=== PATIENT | male | born 1990 | race American Indian/Alaskan Native ===

== ENCOUNTER 2021-01-16 01:51 | Emergency (ER) | payer SELFPAY ==
[2021-01-16] MEDS ORDERED: MIDAZOLAM 5 MG/5 ML INJ MDV IV ONE (01:54)
[2021-01-16] MEDS ORDERED: fentaNYL 100 MCG/2 ML INJ IV ONE ×2 (01:54→01:55)
[2021-01-16] MEDS ORDERED: SODIUM CHLORIDE 0.9% 1000 ML 1,000 ML IV ONE (01:54)
[2021-01-16] MEDS ORDERED: ONDANSETRON 4 MG/2 ML INJ IV ONE (01:55)
--- NOTE | 2021-01-16 02:02 | Emergency Department Report ---
ED Upper Extremity Inj HPI - General Stated Complaint: DISLOCATED SHOULDER Time Seen by Provider: 01/16/21 01:53 Source: patient - History of Present Illness Initial Comments: Patient is 30 years old male with no significant past medical history. Patient presented to the ER complaining of sudden onset of left shoulder pain and deformity. Patient stated that he lifted something heavy and all of a sudden his symptoms started. Patient denied any other injuries. Patient denied any shoulder dislocation before. MD Complaint: Injury to:: left, shoulder -: Sudden Other Extremity Injury: Shoulder: Left Other Injuries: none Severity scale (0 -10): 10 Associated Symptoms: denies other symptoms - Related Data Allergies Allergy/AdvReac Type Severity Reaction Status Date / Time No Known Allergies Allergy Unverified 03/03/20 18:37 ED Review of Systems ROS: Stated complaint: DISLOCATED SHOULDER Other details as noted in HPI Comment: All other systems reviewed and negative Constitutional: denies: chills, fever Respiratory: denies: cough, shortness of breath, SOB with exertion Cardiovascular: denies: chest pain, palpitations Gastrointestinal: denies: abdominal pain, nausea Musculoskeletal: denies: back pain Neurological: denies: headache, weakness, numbness, paresthesias ED Past Medical Hx - Social History Smoking Status: Never Smoker Substance Use Type: None ED Physical Exam - General General appearance: alert, in distress - Head Head exam: Present: atraumatic, normocephalic, normal inspection - Eye Eye exam: Present: normal appearance - ENT ENT exam: Present: normal exam, normal orophraynx - Neck Neck exam: Present: normal inspection, full ROM. Absent: tenderness, meningismus - Respiratory Respiratory exam: Present: normal lung sounds bilaterally. Absent: respiratory distress, wheezes - Cardiovascular Cardiovascular Exam: Present: regular rate, normal rhythm, normal heart sounds - GI/Abdominal GI/Abdominal exam: Present: soft. Absent: distended, tenderness, guarding, rebound - Extremities Exam Extremities exam: Present: normal inspection, full ROM, normal capillary refill - Expanded Upper Extremity Exam Left Shoulder Exam: Present: tenderness, deformity, dislocation Upper Arm exam: Present: normal inspection, full ROM. Absent: tenderness, swelling, abrasion, laceration, ecchymosis Elbow exam: Present: normal inspection, full ROM. Absent: tenderness, swelling, abrasion, laceration Hand Wrist exam: Present: normal inspection, full ROM. Absent: tenderness Neuro motor exam: Present: wrist extension intact, thumb opposition intact, thumb IP flexion intact, thumb adduction intact, fingers 2-5 abduction intact Neurosensory exam: Present: 2-point discrimination, radial nerve intact, ulnar nerve intact, median nerve intact Vascular: Present: normal capillary refill - Back Exam Back exam: Present: normal inspection, full ROM. Absent: CVA tenderness (R), CVA tenderness (L) - Neurological Exam Neurological exam: Present: alert, oriented X3, CN II-XII intact - Psychiatric Psychiatric exam: Present: normal mood - Skin Skin exam: Present: warm, intact, normal color - Moderate Sedation Indications: fracture/dislocation redu ASA Class: II Mallampati Airway Score: 2 Preparation: teletypesetter monitor applied, pulse oximeter, capnometry used, supplemental O2 applied, reversal agents at bedside, suction/airway equipment at bedside Fentanyl: IV Midazolam: IV IV Etomidate Dose (mgs): 5 Complications: none Patient Tolerated Procedure: well, no complications - Orthopedic Joint Reduction Joint #1 Consent Obtained: written consent Time Out Performed: Yes Side: left Joint Reduction Location: shoulder Analgesia: moderate sedation Shoulder Technique Used (if applicable): traction/counter-traction Post-Reduction Neuro Exam: intact Post-Reduction Vascular Exam: intact Post Reduction X-Ray Obtained: Yes Post Reduction X-Ray Results: reduced Splint Applied: Yes Patient Tolerated Procedure: well, no complications Critical care attestation.: If time is entered above; I have spent that time in minutes in the direct care of this critically ill patient, excluding procedure time. ED Disposition Clinical Impression: Dislocation of left shoulder joint Disposition: - TO HOME OR SELFCARE Is pt being admited?: No Condition: Stable Instructions: Shoulder Dislocation, Moderate Conscious Sedation, Adult Referrals: SETVEN MCKINNON MD [Staff Physician] - 3-5 Days
--- NOTE | 2021-01-16 02:22 | XRay Report ---
Left shoulder 2 views INDICATION: Left shoulder pain IMPRESSION: Anterior inferior dislocation of the shoulder with prominent fracture fragment identified in the region of the proximal humerus possibly related to a Hill-Sachs fracture deformity. Signer Name: Buddy Aaron MD Signed: 01/16/2021 2:18 AM Workstation Name: [id number]
[2021-01-16] MEDS ORDERED: ETOMIDATE 20 MG/10 ML INJ IV ONE ×2 (02:25→04:39)
--- NOTE | 2021-01-16 03:05 | XRay Report ---
Left shoulder single view INDICATION: Left shoulder pain IMPRESSION: Reduction of the left glenohumeral dislocation. Multiple irregular fracture fragments pro ject superiorly and laterally. Signer Name: Buddy Aaron MD Signed: 01/16/2021 3:01 AM Workstation Name: [id number]
[2021-01-16 05:15] VITALS: BP 135/70
== END 2021-01-16 05:20 | disposition home or self-care (01) ==
LOC: ED 01:51
DX: S43.085A Other dislocation of left shoulder joint, initial encounter (principal); X50.1XXA Overexertion from prolonged static or awkward postures, initial encounter; Y93.89 Activity, other specified; Y92.89 Other specified places as the place of occurrence of the external cause; Y99.8 Other external cause status
CPT/HCPCS: 23650; 73020; 73030; 96361; 96374; 99283; J2250; J2405; J3010; J7030

== ENCOUNTER 2021-02-22 20:16 | Emergency (ER) | payer SELFPAY | END 2021-02-22 22:10 | disposition left against medical advice (07) | LOC: ED 20:16 | DX: M25.512 Pain in left shoulder (principal); Z53.21 Procedure and treatment not carried out due to patient leaving prior to being seen by health care provider ==